=== PATIENT | male | born 1955 | race Caucasian/White ===

== ENCOUNTER 2020-02-24 11:29 | Emergency (ER) | payer MEDICARE ==
[~2020-02-24] VITALS: Ht 193 cm; Wt 118.4 kg
--- NOTE | 2020-02-24 12:06 | NUR ---
SOB, BODY ACHES, DECREASED SENSE OF TASTE AND SMELL, HENDRICKSON (FEVER LAST WEEK). covid swab walked to lab. lab in room. MD Stewart in room
[2020-02-24 12:14] LABS: BASOPHILS % (AUTO) 1 % (0-1); EOSINOPHILS % (AUTO) 0 % (1-7); LYMPHOCYTES % (AUTO) 36 % (22-44); MEAN CORPUSCULAR HEMOGLOBIN 32.7 pg (27.5-34.5); MEAN CORPUSCULAR HGB CONC 34.5 g/dL (33.2-36.2); MEAN PLATELET VOLUME 7.8 fL (7.4-10.4); MONOCYTES % (AUTO) 12 % (2-9); NEUTROPHILS % (AUTO) 51 % (42-75); PLATELET COUNT 171 x10^3/uL (130-400); RED BLOOD COUNT 4.67 x10^6/uL (4.38-5.82); RED CELL DISTRIBUTION WIDTH 13.2 % (9.4-14.8)
[2020-02-24 12:16] LABS: MD NO
[2020-02-24 12:29] LABS: ALBUMIN 3.6 g/dL (3.4-5.0); CALCIUM 8.4 mg/dL (8.5-10.1); CREATININE 1.18 mg/dL (0.7-1.3)
[2020-02-24 12:41] LABS: ANION GAP 5 mmol/L (5-15); CHLORIDE 107 mmol/L (98-107)
[2020-02-24 14:26] VITALS: BP 124/74
== END 2020-02-24 14:29 | disposition home or self-care (01) ==
LOC: ED 14:12
DX: U07.1 COVID-19 (principal); J06.9 Acute upper respiratory infection, unspecified; J02.9 Acute pharyngitis, unspecified; R06.02 Shortness of breath; R94.31 Abnormal electrocardiogram [ECG] [EKG]
CPT/HCPCS: 71045; 80048; 82040; 85025; 87635; 93005; 99285